=== PATIENT | female | born 1990 | race Caucasian/White ===

== ENCOUNTER → 2018-06-30 | Outpatient (CLI) | payer OTHER ==
--- NOTE | 2018-07-03 09:49 | USB ---
Reason for exam: clinical finding. History: Family history of breast cancer in maternal grandmother at age 60. Indicated problem(s): pain in the left breast. 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 US Breast LT Left complete breast ultrasound includes all four quadrants, the retroareolar region and axilla. Finding demonstrates no cystic or solid lesion seen. These results were verbally communicated with the patient and result sheet given to the patient on 06/30/18. ASSESSMENT: Negative, BI-RAD 1 RECOMMENDATION: Clinical management of the left breast. Manage patient on a clinical basis.
== END | disposition home or self-care (01) ==
LOC: RADUSWWP 12:45
PROVIDERS: ATTEND Obstetrics & Gynecology Obstetrics
DX: N64.4 Mastodynia (principal)

== ENCOUNTER → 2018-10-10 | Outpatient (CLI) | payer OTHER ==
[2018-10-10 12:31] LABS: AST 28 U/L (13-35)
[2018-10-10 12:32] LABS: ALT 25 U/L (8-44); African American GFR (CKD) 100.1 (60.0-200.0); Glucose 84 mg/dL (70-110)
[2018-10-10 12:37] LABS: Vitamin D 25 Hydroxy 35.1 ng/mL (30.0-100.0)
[2018-10-10 12:55] LABS: HCG,Quantitative Serum <2.0 mIU/mL; Thyroid Peroxidase Antibodies <28.0 U/mL (0.0-60.0)
[2018-10-10 14:35] LABS: Hemoglobin A1C 5.1 % (4.0-6.0)
== END | disposition home or self-care (01) ==
LOC: LABWHC1 07:48
PROVIDERS: ATTEND Physician Assistant
DX: N92.6 Irregular menstruation, unspecified (principal)
CPT/HCPCS: 36415; 82306; 82565; 82670; 82947; 83001; 83036; 83525; 84146; 84402; 84403; 84439; 84443; 84450; 84460; 84481; 84520; 84702; 86376; 86800

== ENCOUNTER → 2019-02-08 | Outpatient (CLI) | payer OTHER | END | disposition home or self-care (01) | LOC: LABWHC1 08:29 | PROVIDERS: ATTEND Obstetrics & Gynecology Reproductive Endocrinology | DX: N97.9 Female infertility, unspecified (principal) | CPT/HCPCS: 36415; 84144 ==

== ENCOUNTER → 2019-02-15 | Outpatient (CLI) | payer OTHER | END | disposition home or self-care (01) | LOC: LABWHC1 13:14 | PROVIDERS: ATTEND Obstetrics & Gynecology Reproductive Endocrinology | DX: Z32.00 Encounter for pregnancy test, result unknown (principal) | CPT/HCPCS: 36415; 84702 ==

== ENCOUNTER 2020-05-15 06:00 | Inpatient (IN) | payer OTHER ==
[2020-05-15] MEDS ORDERED: OXYTOCIN 10 UNIT/ML 1 ML VIAL IM PRN (06:18)
[2020-05-15] MEDS ORDERED: CARBOPROST TROMETHAMINE 250 MCG/ML 1 ML AMP IM PRN (06:18)
[2020-05-15] MEDS ORDERED: METHYLERGONOVINE 0.2 MG/ML 1 ML AMP IM PRN (06:18)
[2020-05-15] MEDS ORDERED: LIDOCAINE 0.5% (PF) 5 MG/ML (50 ML SDV) SQ PRN (06:18)
[2020-05-15] MEDS ORDERED: TERBUTALINE 1 MG/ML VIAL SQ PRN (06:18)
[2020-05-15] MEDS ORDERED: AMPICILLIN 2,000 MG in SODIUM CHLORIDE 0.9% 100 ML IVPB STA (06:20)
[2020-05-15] MEDS ORDERED: LACTATED RINGERS 1,000 ML IV SCH (06:30)
[2020-05-15] MEDS ORDERED: OXYTOCIN 30 UNITS/500 ML NS 30 UNIT in SALINE 1 500ML.BAG IV SCH ×2 (06:30→16:15)
[2020-05-15 06:36] LABS: Basophils % (A) 0 %; Eosinophils # (A) 0.2 k/uL (0-0.7); Eosinophils % (A) 2 %; HCT 42.4 % (34.0-46.0); HGB 14.3 gm/dL (11.4-16.0); Lymphocytes # (A) 2.8 k/uL (1.0-4.8); Lymphocytes % (A) 25 %; MCH 34.1 pg (25.0-35.0); MCHC 33.7 g/dL (31.0-37.0); MCV 101.2 fL (80.0-100.0); Macrocytosis Slight; Mean Platelet Volume 10.9; Monocytes # (A) 0.5 k/uL (0-1.0); Monocytes % (A) 4 %; Neutrophils # (A) 7.7 k/uL (1.3-7.7); Neutrophils % (A) 68 %; Platelet Count 134 k/uL (150-450); RDW 13.3 % (11.5-15.5); WBC 11.3 k/uL (3.8-10.6)
--- NOTE | 2020-05-15 08:30 | P.HPOB ---
History of Present Illness H&P Date: 05/15/20 Chief Complaint: IUP at 39 and 0/sevenths weeks This is a 30-year-old at 39-0/7 weeks that presents to labor and delivery for elective induction of labor. This was conceived with in vitro fertilization. Patient has been receiving routine care with myself which has been essentially uncomplicated. Patient has noted irregular contractions and did request induction of labor at 39 weeks. Patient notes good movement denies loss of fluid or vaginal bleeding. Review of Systems Constitutional: Denies chills, Denies fatigue, Denies fever Ears, nose, mouth and throat: Denies headache Cardiovascular: Reports leg edema Respiratory: Denies dyspnea Gastrointestinal: Denies diarrhea, Denies nausea, Denies vomiting Genitourinary: Reports Past Medical History Past Medical History: No Reported History History of Any Multi-Drug Resistant Organisms: None Reported Past Surgical History: No Surgical Hx Reported Past Anesthesia/Blood Transfusion Reactions: No Reported Reaction Past Psychological History: No Psychological Hx Reported Smoking Status: Never smoker Past Alcohol Use History: None Reported Past Drug Use History: None Reported - Past Family History Mother Family Medical History: No Reported History Medications and Allergies Home Medications Medication Instructions Recorded Confirmed Type Pnv,Calcium 72/Iron/Folic Acid 1 each PO DAILY 05/15/20 05/15/20 History [ Plus Tablet] Allergies Allergy/AdvReac Type Severity Reaction Status Date / Time No Known Allergies Allergy Verified 05/15/20 06:17 Exam Osteopathic Statement: *. No significant issues noted on an osteopathic structural exam other than those noted in the History and Physical/Consult. Vital Signs Temp Pulse Resp BP Pulse Ox 05/15/20 06:17 98.2 F 125 H 18 132/83 100 Intake and Output 05/14/20 05/15/20 05/15/20 22:59 06:59 14:59 Other: Weight 87.997 kg Targeted physical exam is as a in general this a well-nourished well-developed female in no acute distress, breathing is noted to be nonlabored, heart has regular rhythm, abdomen is gravid and appropriate for gestational age. Feta l heart tones returned be category 1 and she is wade irregularly. Pitocin is noted to be at 2. On cervical exam she is 5/80/-2 station bulging bag of water is noted, amniotomy is performed and clear fluid was obtained. Results Result Diagrams: 05/15/20 06:25 Abnormal Lab Results - Last 24 Hours (Table) 05/15/20 Range/Units 06:25 WBC 11.3 H (3.8-10.6) k/uL MCV 101.2 H (80.0-100.0) fL Plt Count 134 L (150-450) k/uL Assessment and Plan (1) Term Current Visit: Yes Status: Acute Code(s): Z34.90 - ENCNTR FOR SUPRVSN OF NORMAL , UNSP, UNSP TRIMESTER SNOMED Code(s): 56418916 (2) Conceived by in vitro fertilization Current Visit: Yes Status: Acute Code(s): Z78.9 - OTHER SPECIFIED HEALTH STATUS SNOMED Code(s): 267865236 (3) Positive GBS test Current Visit: Yes Status: Acute Code(s): B95.1 - STREPTOCOCCUS, GROUP B, CAUSING DISEASES CLASSD ELSWHR SNOMED Code(s): 222914599 Plan: This 30-year-old at 39 0/7 weeks presents for elective induction of labor. Pitocin induction of labor is begun per hospital protocol, epidural is offered and she accepts. Anticipate spontaneous vaginal delivery later this morning as she is advancing dilated.
[2020-05-15] MEDS ORDERED: ROPIVACAINE 100 MG, fentaNYL (PF) 200 MCG in SODIUM CHLORIDE 0.9% 76 ML EPIDURAL ONE (09:14)
[2020-05-15] MEDS ORDERED: AMPICILLIN 1,000 MG in SODIUM CHLORIDE 0.9% 50 ML IVPB SCH (12:00)
[2020-05-15] MEDS ORDERED: miSOPROStoL 200 MCG TAB RECTAL STA ×2 (15:44→15:47)
[2020-05-15] MEDS ORDERED: BUTORPHANOL 1 MG/ML 1 ML VIAL IV PRN (15:50)
[2020-05-15] MEDS ORDERED: ACETAMINOPHEN TAB 325 MG TAB PO PRN (16:02)
[2020-05-15] MEDS ORDERED: BENZOCAINE/MENTHOL SPRAY 1 GM/SPRAY AEROSOL TOPICAL PRN (16:02)
[2020-05-15] MEDS ORDERED: SIMETHICONE 80 MG CHEWABLE PO PRN (16:02)
[2020-05-15] MEDS ORDERED: HYDROCORTISONE 2.5% RECTAL CREAM 30 GM TUBE RECTAL PRN (16:02)
[2020-05-15] MEDS ORDERED: IBUPROFEN 600 MG TAB PO PRN (16:02)
[2020-05-15] MEDS ORDERED: diphenhydrAMINE 25 MG CAP PO PRN (16:02)
[2020-05-15] MEDS ORDERED: diphenhydrAMINE 50 MG/ML 1 ML VIAL IVP PRN ×2 (16:02)
[2020-05-15] MEDS ORDERED: diphenhydrAMINE 50 MG CAP PO PRN (16:02)
[2020-05-15] MEDS ORDERED: ZOLPIDEM 5 MG TAB PO PRN (16:02)
[2020-05-15] MEDS ORDERED: LANOLIN CREAM 5 GM TUBE TOPICAL PRN (16:02)
[2020-05-15 16:33] LABS: Basophils % (A) 0 %; Eosinophils # (A) 0.1 k/uL (0-0.7); Eosinophils % (A) 0 %; HCT 38.5 % (34.0-46.0); Lymphocytes # (A) 1.6 k/uL (1.0-4.8); Lymphocytes % (A) 9 %; MCHC 33.8 g/dL (31.0-37.0); MCV 100.7 fL (80.0-100.0); Macrocytosis Slight; Mean Platelet Volume 10.8; Monocytes # (A) 0.8 k/uL (0-1.0); Monocytes % (A) 4 %; Neutrophils # (A) 16.1 k/uL (1.3-7.7); Neutrophils % (A) 86 %; Platelet Count 122 k/uL (150-450); RBC 3.83 m/uL (3.80-5.40); RDW 13.2 % (11.5-15.5); WBC 18.7 k/uL (3.8-10.6)
--- NOTE | 2020-05-15 18:54 | P.PROBDLV ---
Vaginal Delivery Note - . Vaginal Delivery Note: This is a 31-year-old at 39-0/7 weeks that presents to labor and delivery for elective induction of labor. Patient has been receiving routine care with myself. Patient did conceive via IVF. Patient history of a vacuum assist vaginal delivery with her first delivery 8 pounds 15 oz. Patient was admitted to labor and delivery and Pitocin induction of labor was begun. Amniotomy was performed and clear fluid was obtained. Patient was known GBS positive therefore IV antibiotics were begun. Patient progressed through labor becoming uncomfortable and requesting epidural placement. Epidural was placed without difficulty by the anesthesia department. Patient progressed to complete began pushing and had a normal spontaneous vaginal delivery of a viable male at 1518, weight of 9 lbs. 15 oz. with Apgars of 99 at one and 5 minutes or sexually. 2 loose nuchal cords were delivered through, and a true knot was appreciated. After two-minute delayed the umbo cord was doubly clamped and cut, the placenta was delivered spontaneously intact with a three- vessel cord being noted. On inspection the patient's vaginal vault a secondary midline laceration was appreciated and this was repaired in the usual fashion with 3-0 repeat after instillation of lidocaine. Significant lochia was noted after delivery therefore Methergine and rectal Cytotec were given. Uterus was noted to be firm bladder was drained for 100 mL of clear yellow urine. She continued to have a heavier flow therefore Hemabate was given. Uterus was then noted to be firm and flow had decreased. CBC was then ordered, patient had received Stadol 1 due to discomfort. All counts are correct 2 at the end of delivery. Patient and tolerated delivery well and are resting comfortably. We will monitor patient's bleeding closely.
[2020-05-15] MEDS: SENNOSIDES-DOCUSATE SODIUM 1 EACH TAB PO SCH (21:00)
[2020-05-16 06:34] LABS: Basophils % (A) 0 %; Eosinophils # (A) 0.2 k/uL (0-0.7); Eosinophils % (A) 1 %; HCT 33.8 % (34.0-46.0); HGB 11.7 gm/dL (11.4-16.0); Lymphocytes # (A) 2.3 k/uL (1.0-4.8); Lymphocytes % (A) 16 %; MCH 34.5 pg (25.0-35.0); MCHC 34.6 g/dL (31.0-37.0); MCV 99.7 fL (80.0-100.0); Mean Platelet Volume 10.4; Monocytes # (A) 0.7 k/uL (0-1.0); Monocytes % (A) 5 %; Neutrophils # (A) 11.4 k/uL (1.3-7.7); Neutrophils % (A) 78 %; Platelet Count 117 k/uL (150-450); RBC 3.39 m/uL (3.80-5.40); RDW 13.2 % (11.5-15.5); WBC 14.6 k/uL (3.8-10.6)
[2020-05-16] MEDS: SENNOSIDES-DOCUSATE SODIUM 1 EACH TAB PO SCH (07:32)
--- NOTE | 2020-05-16 07:35 | P.DS ---
Providers Date of admission: 05/15/20 06:07 Expected date of discharge: 05/16/20 Attending physician: Shantel Burch Primary care physician: Stated None - Discharge Diagnosis(es) (1) Term Current Visit: Yes Status: Acute (2) Conceived by in vitro fertilization Current Visit: Yes Status: Acute (3) Positive GBS test Current Visit: Yes Status: Acute (4) Status post vaginal delivery Current Visit: Yes Status: Acute (5) PPH ( hemorrhage) Current Visit: Yes Status: Acute (6) Acute blood loss anemia Current Visit: Yes Status: Acute Hospital Course: This is a 30-year-old 001 at 39-0/7 weeks that presented to labor and delivery for elective induction of labor. Patient was admitted to labor and delivery and Pitocin induction of labor was begun. Patient was noted to be group beta strep positive and antibody prophylaxis was begun. Amniotomy was performed and clear fluid was obtained. Patient made slow progress through labor eventually requesting epidural. Epidural was placed without difficulty by the anesthesia department. Patient progressed to complete began pushing and had a normal spontaneous vaginal delivery of a viable male at 1518, weight of 9 lbs. 15 oz. and Apgars of 9 and 9 at one and 5 minutes respectively. Of note baby B did have 2 loose nuchal cords that were delivered through and a true knot. Patient did sustain a second degree midline laceration which was repaired in the usual fashion with 3-0 Rapide. Patient did have a significant post hemorrhage, blood loss 800 mL. Patient is doing well . Hemoglobin dropping from 13 just after delivery to 11 this morning. This day #1 she is ambulating and voiding without difficulty. Her vital signs are noted to be stable. She denies nausea or vomiting and is tolerating a regular diet. She denies concerns and does wish discharge home at 24 hours. Patient Condition at Discharge: Good Plan - Discharge Summary New Discharge Prescriptions: No Action Pnv,Calcium 72/Iron/Folic Acid [ Plus Tablet] 1 each PO DAILY Discharge Medication List Pnv,Calcium 72/Iron/Folic Acid [ Plus Tablet] 1 each PO DAILY 05/15/20 [History] Follow up Appointment(s)/Referral(s): Shantel Burch DO [Doctor of Osteopathic Medicine] - 4 Weeks Patient Instructions/Handouts: Vaginal Delivery (DC), Vaginal Delivery (GEN) Activity/Diet/Wound Care/Special Instructions: Patient is to call the office with any fevers chills foul-smelling discharge after delivery. [id number] ibuprofen as needed for discomfort. Patient is to follow-up in 4 weeks for routine visit. Discharge Disposition: HOME SELF-CARE
[2020-05-16] MEDS ORDERED: PRENATAL VIT-IRON-FOLIC ACID 1 EACH CAP PO SCH (09:00)
[2020-05-16 12:12] VITALS: BP 99/67; PULSE 83; RESP 14; TEMP 97.8
== END 2020-05-16 17:30 | disposition home or self-care (01) | DRG 806 ==
LOC: 4FBP 06:07
PROVIDERS: ADMIT Obstetrics & Gynecology Obstetrics; ATTEND Obstetrics & Gynecology Obstetrics
PROC: 0KQM0ZZ Repair Perineum Muscle, Open Approach (ICD-10-PCS; principal; 2020-05-15)
PROC: 3E0R3BZ Introduction of Anesthetic Agent into Spinal Canal, Percutaneous Approach (ICD-10-PCS; principal; 2020-05-15)
PROC: 10E0XZZ Delivery of Products of Conception, External Approach (ICD-10-PCS; principal; 2020-05-15)
PROC: 00HU33Z Insertion of Infusion Device into Spinal Canal, Percutaneous Approach (ICD-10-PCS; principal; 2020-05-15)
DX: O69.81X0 Labor and delivery complicated by cord around neck, without compression, not applicable or unspecified (principal); D62 Acute posthemorrhagic anemia; Z37.0 Single live birth; O72.1 Other immediate postpartum hemorrhage; O70.1 Second degree perineal laceration during delivery; O99.824 Streptococcus B carrier state complicating childbirth; Z3A.39 39 weeks gestation of pregnancy
CPT/HCPCS: 85025; 86850; 86900; 86901

== ENCOUNTER → 2021-03-30 | Outpatient (CLI) | payer OTHER | END | disposition home or self-care (01) | LOC: LABMAIN 06:48 | PROVIDERS: ATTEND Emergency Medicine | DX: Z20.822 Contact with and (suspected) exposure to COVID-19 (principal) | CPT/HCPCS: 87635 ==

== ENCOUNTER 2022-06-15 05:26 | Observation (INO) | payer BC ==
[2022-06-15] MEDS ORDERED: BETAMET ACET-BETAMETH SOD PHOS 6 MG/ML MDV IM SCH (05:45)
[2022-06-15] MEDS ORDERED: LACTATED RINGERS 1,000 ML IV SCH ×2 (05:45)
[2022-06-15 06:15] LABS: Basophils % (A) 0 %; Eosinophils # (A) 0.1 k/uL (0-0.7); Eosinophils % (A) 2 %; HCT 38.8 % (34.0-46.0); HGB 13.3 gm/dL (11.4-16.0); Lymphocytes % (A) 23 %; MCH 33.7 pg (25.0-35.0); MCHC 34.2 g/dL (31.0-37.0); MCV 98.3 fL (80.0-100.0); Mean Platelet Volume 9.5; Monocytes # (A) 0.3 k/uL (0-1.0); Monocytes % (A) 4 %; Neutrophils # (A) 5.9 k/uL (1.3-7.7); Neutrophils % (A) 69 %; Platelet Count 138 k/uL (150-450); RBC 3.95 m/uL (3.80-5.40); RDW 13.7 % (11.5-15.5); WBC 8.6 k/uL (3.8-10.6)
[2022-06-15 07:39] VITALS: BP 134/73; PULSE 123; RESP 18; TEMP 97.3
--- NOTE | 2022-06-15 07:44 | P.HPOB ---
History of Present Illness H&P Date: 06/15/22 Chief Complaint: IUP at 30-0/7 weeks, complete previa, vaginal bleeding this is a 32-year-old at 30-0/7 weeks that presents to labor and delivery after noted vaginal bleeding at home. Patient has a known complete previa. Patient has been followed by myself and maternal medicine. Patient has had no bleeding prior to this in the . Patient notes good movement. She denies contractions. Patient states she had an initial episode of bleeding that filled her underwear and some "dripping of blood". Upon arrival to labor and delivery patient had minimal to brown discharge, scant bleeding when up to the bathroom. Review of Systems Constitutional: Denies chills, Denies fatigue, Denies fever Ears, nose, mouth and throat: Denies headache Cardiovascular: Denies leg edema Respiratory: Denies dyspnea Gastrointestinal: Denies nausea, Denies vomiting Genitourinary: Reports as per HPI, Reports Past Medical History Past Medical History: No Reported History History of Any Multi-Drug Resistant Organisms: None Reported Past Surgical History: No Surgical Hx Reported Past Anesthesia/Blood Transfusion Reactions: No Reported Reaction Smoking Status: Never smoker - Past Family History Mother Family Medical History: No Reported History Medications and Allergies Home Medications Medication Instructions Recorded Confirmed Type Vit No.180/Iron/Folic 1 each PO DAILY 05/15/20 06/15/22 History [ Plus Tablet] Aspirin [Adult Low Dose Aspirin EC] 1 tab PO DAILY 06/15/22 06/15/22 History Allergies Allergy/AdvReac Type Severity Reaction Status Date / Time No Known Allergies Allergy Verified 05/15/20 06:17 Exam Osteopathic Statement: *. No significant issues noted on an osteopathic structural exam other than those noted in the History and Physical/Consult. Vital Signs Temp Pulse Resp BP Pulse Ox 06/15/22 05:31 97.3 F L 123 H 18 134/73 100 Intake and Output 06/14/22 06/15/22 06/15/22 22:59 06:59 14:59 Other: Weight 92.533 kg targeted physical exam is performed in this date and validation consultant a well-nourished well-developed female in no acute distress, patient appears comfortable, breathing is noted to be nonlabored, heart is regular rate and rhythm, abdomen is gravid and appropriate for gestational age, on kaelyn pad Scant brown discharge is appreciated cervical exam is deferred given complete previa. heart tones are noted to be category 1 and appropriate for gestational age, rare contraction was appreciated Results Result Diagrams: 06/15/22 05:40 Abnormal Lab Results - Last 24 Hours (Table) 06/15/22 Range/Units 05:40 Plt Count 138 L (150-450) k/uL Assessment and Plan (1) 30 weeks gestation of Current Visit: Yes Status: Acute Code(s): Z3A.30 - 30 WEEKS GESTATION OF SNOMED Code(s): 72332672 (2) Complete placenta previa nos or without hemorrhage, third trimester Current Visit: Yes Status: Acute Code(s): O44.03 - COMPLETE PLACENTA PREVIA NOS OR WITHOUT HEMOR, THIRD TRI SNOMED Code(s): 2621384 (3) Conceived by in vitro fertilization Current Visit: No Status: Acute Code(s): Z78.9 - OTHER SPECIFIED HEALTH STATUS SNOMED Code(s): 398739194 Plan: 32-year-old at 30 weeks of gestation that presented with complaints of vaginal bleeding at home. Patient has a known complete previa. This is her initial episode of vaginal bleeding with this . Beta Methasone is given, CBC and external monitoring. Patient has had no further bleeding since being on labor and delivery. Will plan to observe patient and monitor for bleeding, should her status change will consider transfer of care to tertiary care center. Plan of care is discussed with patient and questions are answered and they agree with plan of care.
--- NOTE | 2022-06-15 10:34 | P.PN ---
Progress Note - Text Progress Note Date: 06/15/22 32-year-old at 30 weeks of gestation that presented last evening with complaints of vaginal bleeding, known complete placenta previa. This is patient's first episode of bleeding. Patient denied contractions or cramping at the time. Patient has seen maternal medicine at [place], and case was reviewed with maternal- medicine. Dr. Auguste has accepted transfer of care given bleeding with placenta previa. This was conceived with in vitro fertilization. Patient has had scant vaginal bleeding since being on the unit, she did receive betamethasone 1 around 5 AM this morning. No blood type of O+. Vital signs stable Patient alert and oriented presented comfortable appearing Abdomen is gravid and appropriate for gestational age nontender Trace lower cavity edema heart tones are noted to be appropriate for gestational age rare contraction was appreciated Drea Pad with noted brown discharge Assessment IUP at 30 weeks of gestation Complete placenta previa with bleeding Rh+ Plan Transfer to [facility]. [facility] Dr. Auguste accepting transfer Plan reviewed with patient and patient's . Necessity of transfer is reviewed, patient states understanding of need for transfer given gestational age bleeding and need for NICU services.
== END 2022-06-15 11:55 ==
LOC: FBPOP 05:26 → 4FBP 07:18
PROVIDERS: ADMIT Obstetrics & Gynecology Obstetrics; ATTEND Obstetrics & Gynecology Obstetrics
DX: O44.13 Complete placenta previa with hemorrhage, third trimester (principal); Z79.82 Long term (current) use of aspirin
CPT/HCPCS: 59025; 99214; 96360; 96372; 86900; 86901; 85025; 86850; J0702

== ENCOUNTER → 2023-08-19 | Outpatient (CLI) | payer BC ==
--- NOTE | 2023-08-19 13:46 | USB ---
Reason for Exam: Clinical finding. Patient History: Menarche at age 10. First Full-Term at age 27. Maternal grandmother had breast cancer, age 60. Technique: Method: Whole Breast Handheld. Findings: The whole breast of the left breast, the axilla of the left breast and the retroareolar of the left breast were scanned. No solid or cystic masses are identified.. Overall Assessment: Negative, BI-RAD 1 Management: Screening Mammogram of both breasts. A clinical breast exam by your physician is recommended on an annual basis and results should be correlated with mammographic findings. This exam should not preclude additional follow-up of suspicious palpable abnormalities. Results were given to the patient verbally at the time of exam. Electronically signed and approved by: Nakul Pelayo D.O. Radiologis
--- NOTE | 2023-08-19 14:09 | MM ---
Reason for Exam: Clinical finding. Baseline mammogram. Indicated Problems: Pain of the left side (Global) for 7 Month(s) : on and off. Patient History: Menarche at age 10. First Full-Term at age 27. Maternal grandmother had breast cancer, age 60. Paternal aunt had breast cancer, age 51. Last menstrual period: 08/08/2023 Prior Study Comparison: Patient's first Mammogram. Tissue Density: There are scattered areas of fibroglandular density. Findings: Analyzed By CAD. The pattern is symmetrical. There is a 0.4 cm rounded density 8 cm from the nipple. Short-term follow-up be performed to reevaluate. No suspicious groups of microcalcifications, spiculated or lobular masses, architectural distortion or other secondary signs of malignancy are mammographically apparent. Overall Assessment: Probably benign, BI-RAD 3 Management: Diagnostic Mammogram of the left breast in 6 months. A negative mammogram report should not preclude additional follow up of suspicious palpable abnormalities. Patient should continue monthly self breast exam. A clinical breast exam by your physician is recommended on an annual basis and results should be correlated with mammographic findings. Note on Radha scores and lifetime risk: 1. A Radha score greater than 3% is considered moderate risk. If this is the case, consider specialist referral to assess eligibility for a risk reducing agent. 2. If overall lifetime risk for the development of breast cancer is 20% or higher, the patient may qualify for future screening with alternating mammogram and breast MRI. Electronically signed and approved by: Nakul Pelayo D.O. Radiologis
== END | disposition home or self-care (01) ==
LOC: RADUSWWP 13:21
PROVIDERS: ATTEND Obstetrics & Gynecology Obstetrics
DX: N64.4 Mastodynia (principal); Z80.3 Family history of malignant neoplasm of breast
CPT/HCPCS: 77062; 77066

== ENCOUNTER → 2024-05-21 | Outpatient (CLI) | payer BC ==
--- NOTE | 2024-05-21 13:02 | MM ---
Reason for Exam: Follow-up at short interval from prior study. Last screening mammogram was performed 9 month(s) ago. Patient History: Menarche at age 10. First Full-Term at age 27. Maternal grandmother had breast cancer, age 60. Paternal aunt had breast cancer, age 51. Last menstrual period: 05/14/2024 Risk Values: Radha 5 year model risk: 0.4%. NCI Lifetime model risk: 12.4%. Prior Study Comparison: 08/19/2023 Bilateral MG 3D diag mammo w/cad [facility], [facility]. Tissue Density: Left: The breasts are heterogeneously dense, which may obscure small masses. Findings: Analyzed By CAD. Stable density in the left breast lateral aspect on CC view only. This measures similar at 5 mm and 7.1 cm from the nipple. No new suspicious masses, calcifications or distortions. Overall Assessment: Benign, BI-RAD 2 Management: Screening Mammogram of both breasts in 6 months. Results were given to the patient verbally at the time of exam. Patient should continue monthly self-breast exams. A clinical breast exam by your physician is recommended on an annual basis. This exam should not preclude additional follow-up of suspicious palpable abnormalities. Note on Radha scores and lifetime risk: 1. A Radha score greater than 3% is considered moderate risk. If this is the case, consider specialist referral to assess eligibility for a risk reducing agent. 2. If overall lifetime risk for the development of breast cancer is 20% or higher, the patient may qualify for future screening with alternating mammogram and breast MRI. [facility], , 05/21/2024 1:00 PM. Electronically signed and approved by: Baljinder Larson DO
== END | disposition home or self-care (01) ==
LOC: RADMAMWWP 12:37
PROVIDERS: ATTEND Obstetrics & Gynecology Obstetrics
DX: R92.8 Other abnormal and inconclusive findings on diagnostic imaging of breast (principal); R92.332 Mammographic heterogeneous density, left breast; Z80.3 Family history of malignant neoplasm of breast
CPT/HCPCS: 77061; 77065